=== PATIENT | female | born 1995 | race Caucasian/White ===

== ENCOUNTER 2023-02-22 13:53 | Emergency (ER) | payer OTHER | END 2023-02-22 15:02 | disposition home or self-care (01) | LOC: CSHERS 13:53 | DX: K08.89 Other specified disorders of teeth and supporting structures (principal) | CPT/HCPCS: 99282 ==

== ENCOUNTER 2024-01-29 15:25 | Emergency (ER) | payer OTHER | END 2024-01-29 15:55 | disposition home or self-care (01) | LOC: CSHERS 15:25 | DX: K08.89 Other specified disorders of teeth and supporting structures (principal) | CPT/HCPCS: 99282 ==